=== PATIENT | male | born 1980 | race Two or more races ===

== ENCOUNTER 2017-08-28 09:01 | Emergency (ER) | payer BC ==
--- NOTE | 2017-08-28 09:06 | EDM.PDOC ---
ED HPI GENERAL MEDICAL PROBLEM - General Chief Complaint: Chest Pain Stated Complaint: DIZZINESS Time Seen by Provider: 08/28/17 09:04 - History of Present Illness INITIAL COMMENTS - FREE TEXT/NARRATIVE: HISTORY AND PHYSICAL: History of present illness: Patient 37-year-old male history of gout who presents with a concern of dizziness patient also equivocates regarding chest discomfort he had some recent lab tests that demonstrated an elevated uric acid he denies palpitations nausea vomiting diaphoresis or other concern he has no known cardiac history Review of systems: As per history of present illness and below otherwise all systems reviewed and negative. Past medical history: As per history of present illness and as reviewed below otherwise noncontributory. Surgical history: As per history of present illness and as reviewed below otherwise noncontributory. Social history: No reported history of drug or alcohol abuse. Family history: As per history of present illness and as reviewed below otherwise noncontributory. Physical exam: HEENT: Atraumatic, normocephalic, pupils reactive, negative for conjunctival pallor or scleral icterus, mucous membranes moist, throat clear, neck supple, nontender, trachea midline. Lungs: Clear to auscultation, breath sounds equal bilaterally, chest nontender. Heart: S1S2, regular, negative for clicks, rubs, or JVD. Abdomen: Soft, nondistended, nontender. Negative for masses or hepatosplenomegaly. Negative for costovertebral tenderness. Pelvis: Stable nontender. Genitourinary: Deferred. Rectal: Deferred. Extremities: Atraumatic, negative for cords or calf pain. Neurovascular unremarkable. Neuro: Awake, alert, oriented. Cranial nerves II through XII unremarkable. Cerebellum unremarkable. Motor and sensory unremarkable throughout. Exam nonfocal. Diagnostics: CBC CMP troponin PT/INR chest x-ray EKG orthostatic vital signs Therapeutics: Normal saline 1 L bolus Impression: #1 dizziness #2 atypical chest pain #3 history of gout Definitive disposition and diagnosis as appropriate pending reevaluation and review of above. - Related Data Allergies Allergy/AdvReac Type Severity Reaction Status Date / Time No Known Allergies Allergy Verified 08/28/17 09:07 Home Meds: Home Meds Colchicine 2 tab PO DAILY 08/28/17 [History] ED ROS GENERAL - Review of Systems Review Of Systems: ROS reveals no pertinent complaints other than HPI. ED EXAM, GENERAL - Physical Exam Exam: See Below (See dictation) Course - Vital Signs Last Recorded V/S: Last Vital Signs Temp 35.9 C 08/28/17 09:10 Pulse 70 08/28/17 09:10 Resp 16 08/28/17 09:10 BP 137/92 H 08/28/17 09:10 Pulse Ox 97 08/28/17 09:10 - Orders/Labs/Meds Orders: Active Orders 24 hr Category Date Time Status Cardiac Monitoring [RC] . DIRECTED Care 08/28/17 09:12 Active EKG Documentation Completion [RC] STAT Care 08/28/17 09:13 Active Sodium Chloride 0.9% [Saline Flush] Med 08/28/17 09:12 Active 10 ml FLUSH ASDIRECTED PRN Sodium Chloride 0.9% [Saline Flush] Med 08/28/17 09:12 Active 10 ml FLUSH ASDIRECTED PRN Sodium Chloride 0.9% [Saline Flush] Med 08/28/17 09:12 Active 2.5 ml FLUSH ASDIRECTED PRN Saline Lock Insert [OM.PC] Stat Oth 08/28/17 09:12 Ordered Medication Orders Sodium Chloride (Saline Flush) 10 ml FLUSH ASDIRECTED PRN PRN Reason: Keep Vein Open Last Admin: 08/28/17 09:48 Dose: 10 ml Sodium Chloride (Saline Flush) 10 ml FLUSH ASDIRECTED PRN PRN Reason: Keep Vein Open Last Admin: 08/28/17 09:49 Dose: 10 ml Sodium Chloride (Saline Flush) 2.5 ml FLUSH ASDIRECTED PRN PRN Reason: Keep Vein Open Last Admin: 08/28/17 09:49 Dose: 2.5 ml Labs: Laboratory Tests 08/28/17 08/28/17 08/28/17 Range/Units 09:10 09:27 09:27 WBC 8.57 (4.0-11.0) K/uL RBC 5.37 (4.50-5.90) M/uL Hgb 16.5 (13.0-17.0) g/dL Hct 45.8 (38.0-50.0) % MCV 85.3 (80.0-98.0) fL MCH 30.7 (27.0-32.0) pg MCHC 36.0 (31.0-37.0) g/dL RDW Std Deviation 38.4 (28.0-62.0) fl RDW Coeff of Tory 13 (11.0-15.0) % Plt Count 226 (150-400) K/uL MPV 9.90 (7.40-12.00) fL Neut % (Auto) 67.0 (48.0-80.0) % Lymph % (Auto) 25.6 (16.0-40.0) % [place] % (Auto) 6.2 (0.0-15.0) % Eos % (Auto) 1.1 (0.0-7.0) % Baso % (Auto) 0.1 (0.0-1.5) % Neut # (Auto) 5.8 H (1.4-5.7) K/uL Lymph # (Auto) 2.2 (0.6-2.4) K/uL [place] # (Auto) 0.5 (0.0-0.8) K/uL Eos # (Auto) 0.1 (0.0-0.7) K/uL Baso # (Auto) 0.0 (0.0-0.1) K/uL Nucleated RBC % 0.0 /100WBC Nucleated RBCs # 0 K/uL INR 1.01 (0.86-1.11) Sodium 139 (136-146) mmol/L Potassium 3.7 (3.5-5.1) mmol/L Chloride 103 (98-110) mmol/L Carbon Dioxide 24 (21-31) mmol/L BUN 17 (6.0-23.0) mg/dL Creatinine 0.8 (0.6-1.5) mg/dL Est Cr Clr Drug Dosing 118.20 mL/min Estimated GFR (MDRD) > 60.0 ml/min Glucose 108 (60-110) mg/dL Calcium 9.4 (8.8-10.8) mg/dL Total Bilirubin 1.1 (0.1-1.5) mg/dL AST 25 (5-40) IU/L ALT 33 (8-54) IU/L Alkaline Phosphatase 117 (40-150) Troponin I < 0.10 (0.0-0.29) NG/ML Total Protein 8.3 H (6.0-8.0) g/dL Albumin 4.3 (3.5-5.0) g/dL Globulin 4.0 H (2.0-3.5) g/dL Albumin/Globulin Ratio 1.1 L (1.3-2.8) Lipase (7-80) U/L 08/28/17 Range/Units 09:59 WBC (4.0-11.0) K/uL RBC (4.50-5.90) M/uL Hgb (13.0-17.0) g/dL Hct (38.0-50.0) % MCV (80.0-98.0) fL MCH (27.0-32.0) pg MCHC (31.0-37.0) g/dL RDW Std Deviation (28.0-62.0) fl RDW Coeff of Tory (11.0-15.0) % Plt Count (150-400) K/uL MPV (7.40-12.00) fL Neut % (Auto) (48.0-80.0) % Lymph % (Auto) (16.0-40.0) % [place] % (Auto) (0.0-15.0) % Eos % (Auto) (0.0-7.0) % Baso % (Auto) (0.0-1.5) % Neut # (Auto) (1.4-5.7) K/uL Lymph # (Auto) (0.6-2.4) K/uL [place] # (Auto) (0.0-0.8) K/uL Eos # (Auto) (0.0-0.7) K/uL Baso # (Auto) (0.0-0.1) K/uL Nucleated RBC % /100WBC Nucleated RBCs # K/uL INR (0.86-1.11) Sodium (136-146) mmol/L Potassium (3.5-5.1) mmol/L Chloride (98-110) mmol/L Carbon Dioxide (21-31) mmol/L BUN (6.0-23.0) mg/dL Creatinine (0.6-1.5) mg/dL Est Cr Clr Drug Dosing mL/min Estimated GFR (MDRD) ml/min Glucose (60-110) mg/dL Calcium (8.8-10.8) mg/dL Total Bilirubin (0.1-1.5) mg/dL AST (5-40) IU/L ALT (8-54) IU/L Alkaline Phosphatase (40-150) Troponin I (0.0-0.29) NG/ML Total Protein (6.0-8.0) g/dL Albumin (3.5-5.0) g/dL Globulin (2.0-3.5) g/dL Albumin/Globulin Ratio (1.3-2.8) Lipase 41 (7-80) U/L Meds: Medications Generic Name Dose Route Start Last Admin Trade Name Freq PRN Reason Stop Dose Admin Sodium Chloride 10 ml 08/28/17 09:12 08/28/17 09:48 Saline Flush FLUSH 10 ml ASDIRECTED PRN Administration Keep Vein Open Sodium Chloride 10 ml 08/28/17 09:12 08/28/17 09:49 Saline Flush FLUSH 10 ml ASDIRECTED PRN Administration Keep Vein Open Sodium Chloride 2.5 ml 08/28/17 09:12 08/28/17 09:49 Saline Flush FLUSH 2.5 ml ASDIRECTED PRN Administration Keep Vein Open Discontinued Medications Generic Name Dose Route Start Last Admin Trade Name Freq PRN Reason Stop Dose Admin Sodium Chloride 1,000 mls @ 999 mls/hr 08/28/17 09:12 08/28/17 09:50 Normal Saline IV 08/28/17 10:12 999 mls/hr .Bolus ONE Administration Ondansetron HCl 4 mg 08/28/17 09:45 08/28/17 09:49 Zofran IVPUSH 08/28/17 09:46 4 mg ONETIME ONE Administration Departure - Departure Time of Disposition: 11:05 Disposition: Home, Self-Care 01 Condition: Good Clinical Impression: Dizziness, Pericarditis - Discharge Information Forms: ED Department Discharge Additional Instructions: The following information is given to patients seen in the emergency department who are being discharged to home. This information is to outline your options for follow-up care. We provide all patients seen in our emergency department with a follow-up referral. The need for follow-up, as well as the timing and circumstances, are variable depending upon the specifics of your emergency department visit. If you don't have a primary care physician on staff, we will provide you with a referral. We always advise you to contact your personal physician following an emergency department visit to inform them of the circumstance of the visit and for follow-up with them and/or the need for any referrals to a consulting specialist. The emergency department will also refer you to a specialist when appropriate. This referral assures that you have the opportunity for followup care with a specialist. All of these measure are taken in an effort to provide you with optimal care, which includes your followup. Under all circumstances we always encourage you to contact your private physician who remains a resource for coordinating your care. When calling for followup care, please make the office aware that this follow-up is from your recent emergency room visit. If for any reason you are refused follow-up, please contact the [facility] emergency department at and asked to speak to the emergency department charge nurse. [facility] [address] [place] [id number] Motrin/Tylenol as directed follow-up primary medical doctor/cardiology return as needed as discussed - My Orders Last 24 Hours: My Active Orders 08/28/17 09:12 Cardiac Monitoring [RC] . DIRECTED Sodium Chloride 0.9% [Saline Flush] 10 ml FLUSH ASDIRECTED PRN Sodium Chloride 0.9% [Saline Flush] 10 ml FLUSH ASDIRECTED PRN Sodium Chloride 0.9% [Saline Flush] 2.5 ml FLUSH ASDIRECTED PRN Saline Lock Insert [OM.PC] Stat 08/28/17 09:13 EKG Documentation Completion [RC] STAT - Assessment/Plan Last 24 Hours: My Active Orders 08/28/17 09:12 Cardiac Monitoring [RC] . DIRECTED Sodium Chloride 0.9% [Saline Flush] 10 ml FLUSH ASDIRECTED PRN Sodium Chloride 0.9% [Saline Flush] 10 ml FLUSH ASDIRECTED PRN Sodium Chloride 0.9% [Saline Flush] 2.5 ml FLUSH ASDIRECTED PRN Saline Lock Insert [OM.PC] Stat 08/28/17 09:13 EKG Documentation Completion [RC] STAT
[2017-08-28] MEDS ORDERED: Sodium Chloride 0.9% 2.5 ML Syringe FLUSH PRN (09:12)
[2017-08-28] MEDS ORDERED: Sodium Chloride 0.9% 10 ML Syringe FLUSH PRN ×2 (09:12)
[2017-08-28] MEDS ORDERED: Sodium Chloride 0.9% 1,000 ML IV ONE (09:12)
[2017-08-28] MEDS ORDERED: Ondansetron 4 MG/2 ML SDV IVPUSH ONE (09:45)
--- NOTE | 2017-08-28 10:11 | CR ---
EXAMINATION: AP chest radiograph. HISTORY: Chest pain. FINDINGS: The trachea is midline. The cardiomediastinal silhouette is within normal limits. No pulmonary infilt rates, effusions or pneumothorax. Osseous structures appear unremarkable. IMPRESSION: No acute cardiopulmonary process.
[2017-08-28 10:36] LABS: CHLORIDE,CL 103 mmol/L (98-110); SODIUM,NA 139 mmol/L (136-146)
== END 2017-08-28 11:40 | disposition home or self-care (01) ==
LOC: MW.ED 09:01
DX: I31.9 Disease of pericardium, unspecified (principal)
CPT/HCPCS: 36415; 71010; 80053; 83690; 84484; 85025; 85610; 93005; 96361; 96374; 99285; J2405; J7040; 99283